=== PATIENT | male | born 1990 | race Caucasian/White ===

== ENCOUNTER 2016-09-05 16:57 | Emergency (ER) | payer MEDICAID ==
[~2016-09-05] VITALS: Ht 193 cm; Wt 148.0 kg
[~2016-09-05 16:57] MED LIST: IBUP-1724 PO
--- OUTSIDE RECORDS SUMMARY | 2016-09-05 17:01 | XMS REPORT | Summary of Care ---
Author Author Luis Alberto Bond M.D. Organization Unknown Address [address] [place] [address] [place] [address] Phone Unavailable Care Team Providers Care Coal And Ash Supervisor Name Role Phone Luis Alberto Bond M.D. Unavailable Unavailable No Assigned PCP-Pt Confirmed PP Unavailable Unavailable Unavailable Functional Status Functional Status Health Issues* Name Dates Details Functional status health issues are not documented Status: Cognitive Status Health Issues* Name Dates Details Cognitive status health issues are not documented Status: Problems Name Dates Details Morbid obesity (278.01, E66.01) Status: Active Nicotine dependence (305.1, F17.200) Status: Active Lump in the testicle (608.89, N50.9) Status: Active Swelling of left testicle (608.86, N50.8) Status: Active Pain in left testicle (608.9, N50.8) Status: Active Medications Name Dates Details Tylenol 325 MG Oral Tablet TAKE 1 TO 2 TABLETS EVERY 6 HOURS NEEDED. * Started 17-Sep-2015 ActiveIbuprofen 200 MG Oral Tablet TAKE 1 TABLET EVERY 4 TO 6 HOURS NEEDED. * Refills: 0 * Started 17-Sep-2015 ActiveLevofloxacin 500 MG Oral Tablet TAKE 1 TABLET DAILY FOR 28 DAYS. * Quantity: 28 Refills: 0 Luis Alberto Bond M.D.* Started 18-Sep-2015 Active Allergies and Adverse Reactions Name Dates Details Shellfish-derived Products Status: Active Past Medical History Name Dates Details History of Torn ACL (844.2, S83.519A) Status: Resolved Procedures Procedure Dates Details History of Inguinal Hernia Repair Procedures not documented Immunization Name Dates Details Immunizations not documented Family History Mother* Name Dates Details Family history of Heart problem (429.9, I51.9) Status: Active Father* Name Dates Details Family history of cardiac disorder (V17.49, Z82.49) Status: Active Family history of hypertension (V17.49, Z82.49) Status: Active Family history of COPD with asthma (493.20, J44.9) Status: Active Sister* Name Dates Details Family history of asthma (V17.5, Z82.5) Status: Active Social History Name Dates Details Smoking Status* Smoker. current status unknown Vital Signs Date Test Result Details 20-Sep-2015 14:45 BP Systolic 149 mm[Hg] Status: BP Diastolic 88 mm[Hg] Status: Heart Rate 121 /min Status: Height 75 in Status: Weight 340 lb Status: Body Mass Index Calculated 42.5 kg/m2 Status: Body Surface Area Calculated 2.75 m2 Status: 18-Sep-2015 14:10 BP Systolic 140 mm[Hg] Status: BP Diastolic 104 mm[Hg] Status: Heart Rate 117 /min Status: Height 75 in Status: Weight 340 lb Status: Body Mass Index Calculated 42.5 kg/m2 Status: Body Surface Area Calculated 2.75 m2 Status: Results Date Description Value Details Results not documented Plan of Care Planned Observations* Name Dates Details Planned Goals not documented Goal Planned Encounters* Appointment; Provider: Luis Alberto Bond On 18-Oct-2015 13:00 Instructions * Instructions not documented Encounters Appointment; Luis Alberto Bond Encounter Diagnosis: Problem not documented On 20-Sep-2015 15:00 Appointment; Luis Alberto Bond Encounter Diagnosis: Problem not documented On 18-Sep-2015 14:15
--- OUTSIDE RECORDS SUMMARY | 2016-09-05 17:01 | XMS REPORT ---
Author Author MARC STACY [facility] Address Unknown Phone Unavailable Care Team Providers Care Management Technician Name Role Phone Dr. BRISSA WU Primary Care Physician Unavailable Allergies Allergy Description Allergy Type No known allergies - Procedures Procedure Type Procedure Description Date Physicians No codified procedures found for this patient. Results No Procedures Performed Observation Test Name Observation Test Result Observation Test Units Observation Test Date Observation Test Time No result observations. Results Transcriptions Result Description Result Date Result Time PT - DISCHARGE SUMMARY 11/01/12 07:30 PT - INIT EVAL - OOT 10/04/12 11:30 PT - UPDATE - OOT 10/13/12 08:30 History of Immunizations Immunization Date no immunization entries Plan of Care Item Text No plan of care items. Procedure Date/Time/Initials Critical? Status No plan of care procedures. Medication List Medication Dose Units Frequency Start Date/Time Status none Problem List Problem Entered Date Resolved Date No known problems
--- OUTSIDE RECORDS SUMMARY | 2016-09-05 17:01 | XMS REPORT | Summary of Care ---
Author Author Luis Alberto Bond M.D. Organization Unknown Address [address] [place] [address] [place] [address] Phone Unavailable Care Team Providers Care Wig Sales Consultant Name Role Phone Luis Alberto Bond M.D. [...] Active Nicotine dependence (305.1, F17.200) Status: Active Pain in left testicle (608.9, N50.8) Status: Active Lump in the testicle (608.89, N50.9) Status: Active Swelling of left testicle (608.86, N50.8) Status: Active Medications Name Dates Details [...] unknown Vital Signs Date Test Result Details 18-Sep-2015 14:10 BP Systolic 140 mm[Hg] Status: [...] Encounters* Appointment; Provider: Luis Alberto Bond On 20-Sep-2015 15:00 Instructions * Instructions not documented Encounters Appointment; Luis Alberto Bond Encounter Diagnosis: Problem not documented On 18-Sep-2015 14:15
--- OUTSIDE RECORDS SUMMARY | 2016-09-05 17:01 | XMS REPORT ---
Author Author YOGESH MELISSA [facility] Address Unknown Phone Unavailable Care Team Providers Care Ledger Clerk Name Role Phone Dr. DRE VAZQUEZ Primary Care Physician Unavailable Allergies Allergy Description Allergy Type No known allergies - Procedures Procedure Type Procedure Description Date Physicians No codified procedures found for this patient. Results No Procedures Performed Observation Test Name Observation Test Result Observation Test Units Observation Test Date Observation Test Time No result observations. Results Transcriptions Result Description Result Date Result Time XR ANKLE RT 2 VIEW 09/14/12 14:44 XR TIBIA & FIBULA RT, AP AND LATERAL 09/14/12 14:45 History of Immunizations Immunization Date no immunization entries Plan of Care Item Text No plan of care items. Procedure Date/Time/Initials Critical? Status No plan of care procedures. Medication List Medication Dose Units Frequency Start Date/Time Status none Problem List Problem Entered Date Resolved Date No known problems
[2016-09-05 17:05] VITALS: Ht 193 cm; Wt 148.0 kg
--- NOTE | 2016-09-05 17:15 | NUR ---
DR DR XAVIER AT BEDSIDE.
--- NOTE | 2016-09-05 17:17 | ERPDOC ---
Departure Disposition Decision Date: Sep 05, 2016 Disposition Decision Time: 18:16 Disposition: 01 DISCHARGED HOME, SELF-CARE Impression Impression Impression: Primary Impression: Avulsion of skin of right thumb without complication Encounter type: initial encounter Qualified Codes: S61.001A - Unspecified open wound of right thumb without damage to nail, initial encounter Severity: Moderate Condition: Stable Seen By: Physician only Referrals: JOSELYN WARREN DO (HOSPITALIST) (PCP) Patient Instructions: Laceration Without Closure (ED) Problems/Meds/Labs Reviewed?: Yes Medications reviewed and manag: Yes Additional Instructions: Wash daily with soap and water, if any signs or symptoms of infection follow-up with primary medical physician of choice Follow up care ordered?: Yes Mental Status: Alert, Oriented Scripts Tramadol HCl (Tramadol HCl) 50 Mg Tablet 1-2 TAB PO Q6H Y for PAIN, #15 TAB Prov: MELINDA XVAIER MD 09/05/16 Cephalexin (Keflex) 500 Mg Capsule 1 CAP PO TID for 7 Days, #21 CAP Prov: MELINDA XAVIER MD 09/05/16 HPI General Chief Complaint: Laceration Stated Complaint: LACERATION THUMB Time Seen by Provider: 17:16 Source: patient Exam Limitations: no limitations HPI Hand/Forearm Initial Comments Patient is a 25-year-old male, was sharpening a meat passer and incised the tip of his right thumb. Patient brought to the ER for evaluation Occurred At: home Onset: Rapid Duration: 1 hr Pain Scale: Now & Worst: 2/10 Location: right: thumb Method of Injury: incised Allergies: Coded Allergies: No Known Allergies (Unverified , 09/05/16) Past History Past Medical History Pt denies signifigant PMH Surgical History Denies Surgeries Vaccines Hx Influenza Vaccination: No Hx Pneumococcal Vaccination: No Social History Tobacco Usage: smoke # of Packs/Tins per Day: 1 Alcohol Usage: none Drug Usage: none Review of Systems Constitutional Constitutional: DENIES: appetite decrease, chills, dizziness, fever, weakness Eyes Vision: DENIES: double vision, loss of visual montero ENMT Sinuses: DENIES: congestion, rhinorrhea Mouth/Throat: DENIES: scratchy throat, sore throat Cardiovascular Cardiac: DENIES: chest pain Pulmonary Respiratory: DENIES: cough, sputum GI Upper Abdomen: DENIES: pain Lower Abdomen: DENIES: pain Musculoskeletal General: see HPI Integumentary Skin: see HPI Endocrine Endocrine: DENIES: heat/cold intolerance Hematologic/Lymphatic Hematologic/Lymphatic: DENIES: anemia Exam General General Nourishment: well nourished, well developed Vital Signs: Temperature: 98.2, Source: Oral, Heart Rate: 98, Respiratory Rate : 16, BP: 143/83, Pulse Oximetry: 98 Height (Feet): 6 Height (Inches): 4.00 Fastrak Hand/Forearm Hand/Forearm : Upper Extremity: Right Elbow: NOT FOUND: deformity, ecchymosis, erythema, swelling Forearm: NOT FOUND: ecchymosis, erythema, tender Wrist: NOT FOUND: ecchymosis, erythema, swelling, tender Hand: NOT FOUND: ecchymosis, erythema, swelling Fingers: other (patient has avulsed the distal tip of his right thumb, lateral side patient flexion extension intact), NOT FOUND: impaired abduction, impaired adduction, impaired extension, impaired flexion Neurologic RN Documented GCS Eye Opening: (4)Spontaneous Verbal: (5)Oriented Motor: (6)Obeys Commands Total: Differential Diagnoses Considering: Extensor Tendon Injury, Flexor Tendon Injury, Other (laceration, avulsion) Progress Results/Orders Orders Medications Current ED Medications Acetaminophen/ Hydrocodone Bitart ([place] 7.5/325) 1 tab O ONCE PO Last administered on 09/05/16t 17:22; Start 09/05/16 at 17:30; Stop 09/05/16 at 17:31; Status DC Xray Xray : Xray: Finger(s) R Interpretation: Normal, Interpreted by Me (no acute fractures or dislocations noted) MELINDA XAVIER MD Sep 05, 2016 17:16
--- NOTE | 2016-09-05 17:30 | NUR ---
XRY PORTABLE IN ROOM.
--- NOTE | 2016-09-05 17:49 | NUR ---
FAMILY UPDATE UPDATED IN LOBBY OF PT'S CONDITION.
--- OUTSIDE RECORDS SUMMARY | 2016-09-05 17:50 | XMS REPORT ---
Author Author MARC STACY [facility] Address Unknown Phone Unavailable Care Team Providers Care Sports Clerk Name Role Phone Dr. BRISSA WU Primary [...]
--- OUTSIDE RECORDS SUMMARY | 2016-09-05 17:50 | XMS REPORT ---
Author Author YOGESH MELISSA [facility] Address Unknown Phone Unavailable Care Team Providers Care Enrollment Services Dean Name Role Phone Dr. DRE VAZQUEZ Primary [...]
--- NOTE | 2016-09-05 18:12 | NUR ---
DR DR XAVIER AT BEDSIDE.
[2016-09-05] MEDS ORDERED: CEPH-583 PO (18:17)
[2016-09-05] MEDS ORDERED: TRAM50TA4 PO (18:17)
[2016-09-05 18:40] VITALS: BP 125/62; PULSE 91; RESP 16; TEMP 98.6; O2SAT 96
--- NOTE | 2016-09-06 08:59 | DI ---
Indication: ITS.REASON: Laceration to the lateral right thumb distal phalanx area PROCEDURE: FINGERS RIGHT 2 VIEW MIN: Encounter: Initial Comparison: None Findings: There is no acute fracture, dislocation or malalignment identified. No radiopaque foreign body identified. Impression: No acute osseous abnormality. .
== END 2016-09-05 18:40 | disposition home or self-care (01) ==
LOC: ED 16:57
DX: S61.011A Laceration without foreign body of right thumb without damage to nail, initial encounter (principal); W29.0XXA Contact with powered kitchen appliance, initial encounter; Y93.89 Activity, other specified; Y92.009 Unspecified place in unspecified non-institutional (private) residence as the place of occurrence of the external cause; Y99.8 Other external cause status